=== PATIENT | female | born 1975 | race Two or more races ===

== ENCOUNTER 2016-11-01 08:28 | Emergency (ER) | payer SELFPAY ==
[2016-11-01] MEDS ORDERED: LACTATED RINGERS 1,000 ML ONE (09:39)
[2016-11-01] MEDS ORDERED: DIPHENHYDRAMINE HCL 50 MG/1 ML VIAL ONE (09:39)
[2016-11-01] MEDS ORDERED: METOCLOPRAMIDE HCL 5 MG/ML 2ML VIAL ONE (09:39)
[2016-11-01 09:52] LABS: PH,URINE 6.5 (5.0-8.0); URINE BILIRUBIN NEGATIVE (NEGATIVE); URINE BLOOD NEGATIVE (NEGATIVE); URINE GLUCOSE (UA) NEGATIVE (NEGATIVE); URINE LEUKOCYTE ESTERASE TRACE (NEGATIVE); URINE NITRITE NEGATIVE (NEGATIVE); URINE PROTEIN NEGATIVE (NEGATIVE); URINE UROBILINOGEN NORMAL (0-1 mg/dl)
[2016-11-01 09:53] LABS: HCG,QUALITATIVE URINE NEGATIVE
[2016-11-01 09:54] LABS: URINE APPEARANCE CLEAR; URINE COLOR YELLOW
[2016-11-01 10:03] LABS: URINE BACTERIA RARE; URINE EPITHELIAL CELLS 0-2 /hpf; URINE RBC 0 /hpf; URINE WBC 0-1 /hpf
[2016-11-01 10:04] LABS: CALCIUM 8.8 mg/dL (8.6-10.3)
--- NOTE | 2016-11-01 10:34 | CT ---
HEAD CT WITHOUT CONTRAST HISTORY: Frontal headache and foreign fovea. No intravenous contrast administered. Contiguous axial images acquired from skull base to vertex. COMPARISON:None. BRAIN VOLUME:Grossly unremarkable for patient age. VENTRICULAR SIZE:No gross ventriculomegaly. FOCAL MASS EFFECT:None. ACUTE INTRACRANIAL HEMORRHAGE:None. CALVARIUM:Grossly intact. VISIBLE PARANASAL SINUSES AND MASTOID AIR CELLS: Mucosal thickening of posterior ethmoid and right sphenoid sinuses. Osteitis and opacification of the left sphenoid sinus. IMPRESSION: 1. No gross mass effect, ventriculomegaly, or acute intracranial hemorrhage. 2. Paranasal sinus mucosal disease with evidence of chronic left sphenoid sinusitis. Results were electronically transmitted to the electronic medical record at 11/01/2016 at 1030 hours.
[2016-11-01] MEDS ORDERED: KETOROLAC TROMETHAMINE 15 MG/ML VIAL ONE (10:59)
== END 2016-11-01 12:03 | disposition home or self-care (01) ==
LOC: ED 08:28
DX: R51 Headache (principal); J32.9 Chronic sinusitis, unspecified
CPT/HCPCS: 81025; 80048; 81001; 70450; 96375 ×2; 99284; 96374; 99283; J1200; J2765; J1885; J7120